=== PATIENT | female | born 1950 | race Two or more races ===

== ENCOUNTER 2020-11-30 05:35 | Day surgery (SDC) | payer OTHER ==
[~2020-11-30 05:35] MED LIST: ZEBETA PO
[2020-11-30] MEDS ORDERED: ULTRAM50 MG PO (08:44)
== END 2020-11-30 10:20 | disposition home or self-care (01) ==
LOC: CIR.AMB 05:35
PROVIDERS: ATTEND Surgery
DX: D17.21 Benign lipomatous neoplasm of skin and subcutaneous tissue of right arm (principal); Z20.822 Contact with and (suspected) exposure to COVID-19